=== PATIENT | female | born 1985 | race Caucasian/White ===

== ENCOUNTER 2018-12-30 16:38 | Emergency (ER) | payer BC, OTHER ==
[2018-12-30 16:56] VITALS: BP 134/75
--- NOTE | 2018-12-30 17:22 | UC ---
UC General HPI - HPI Summary HPI Summary: pt notes long hx varicose veins. the varicose vein in her R thigh has become very painful and now has surrounding redness for the past 3 days. no hx injury, fever, chills, cp or sob. - History of Current Complaint Chief Complaint: UCLowerExtremity Stated Complaint: RIGHT LEG PAIN Time Seen by Provider: 12/30/18 17:01 Hx Obtained From: Patient Hx Last Menstrual Period: "5 days ago" Onset/Duration: Gradual Onset Timing: Constant Pain Intensity: 7 Aggravating: touch - Allergy/Home Medications Allergies/Adverse Reactions: Allergies Allergy/AdvReac Type Severity Reaction Status Date / Time bupropion [From Wellbutrin] Allergy Rash Verified 12/30/18 16:52 Home Medications: Home Medications Bcp 1 tab QPM 12/30/18 [History Confirmed 12/30/18] PMH/Surg Hx/FS Hx/Imm Hx Previously Healthy: Yes - Surgical History Surgical History: Yes Surgery Procedure, Year, and Place: - Family History Known Family History: Positive: Non-Contributory - Social History Lives: With Family Alcohol Use: Rare Substance Use Type: None Smoking Status (MU): Light Every Day Tobacco Smoker Type: Cigarettes Amount Used/How Often: 10-15 cigs/day Review of Systems All Other Systems Reviewed And Are Negative: Yes Constitutional: Negative: Fever, Chills Skin: Positive: Rash - R inner thigh Respiratory: Negative: Shortness Of Breath, Cough Cardiovascular: Negative: Palpitations, Chest Pain Motor: Negative: Decreased ROM Musculoskeletal: Negative: Calf Tenderness, Edema Physical Exam Triage Information Reviewed: Yes Appearance: Well-Appearing Vital Signs: Initial Vital Signs Temp 98.8 F 12/30/18 16:52 Pulse 82 12/30/18 16:52 Resp 16 12/30/18 16:52 BP 134/75 12/30/18 16:52 Pulse Ox 99 12/30/18 16:52 Vital Signs Reviewed: Yes Eyes: Positive: Conjunctiva Clear Neck: Positive: Supple Respiratory: Positive: No respiratory distress Cardiovascular: Positive: RRR Abdomen Description: Positive: Nontender Musculoskeletal: Positive: ROM Intact Neurological: Positive: Alert Psychological: Positive: Normal Response To Family, Age Appropriate Behavior Skin Exam: Normal, Other - Pt is wearing shorts: bilateral vericose veins noted to BLE's. The R superficial sapenous vein is very tender and has adjacent redness to the distal end but involves the entire medial thigh at the proximal end. Course/Dx - Course Course Of Treatment: [facility] CALLED AND REPORT GIVEN TO SASKIA MAYA. I ADVISED OF SUPERFICIAL SAPHENOUS VEIN VARICOSITY WITH PHLEBITIS, SECONDARY CELLULITIS AND NEED TO R/O DVT BECAUSE OF RELATION TO DEEP SAPHENOUS VEIN. - Differential Dx - Multi-Symptom Differential Diagnoses: Other - varicose vein with a phlebitis, secondary cellulitis and will need to r/o DVT. - Diagnoses Provider Diagnosis: Phlebitis, Cellulitis, Varicose vein of leg Discharge - Sign-Out/Discharge Documenting (check all that apply): Patient Departure All imaging exams completed and their final reports reviewed: No Studies - Discharge Plan Condition: Stable Disposition: TRANS HIGHER LVL OF CARE FAC Referrals: Earnsetine Rae MD [Primary Care Provider] - Additional Instructions: LEAVE HERE AND GO DIRECTLY TO THE ER DISCUSSED. - Billing Disposition and Condition Condition: STABLE Disposition: Trans Higher Lvl of Care Fac
== END 2018-12-30 17:30 | disposition short-term general hospital (02) ==
LOC: UCCORT 16:38
DX: I80.9 Phlebitis and thrombophlebitis of unspecified site (principal); L03.115 Cellulitis of right lower limb; I83.811 Varicose veins of right lower extremity with pain; F17.210 Nicotine dependence, cigarettes, uncomplicated
CPT/HCPCS: 99212; G0463

== ENCOUNTER 2019-05-18 07:02 | Emergency (ER) | payer OTHER ==
[2019-05-18 07:27] VITALS: BP 145/74
--- NOTE | 2019-05-18 08:15 | UC ---
Throat Pain/Nasal Demar HPI - HPI Summary HPI Summary: sore throat x 1 week pain is sever 6 out of 10 , cannot eat anything, getting worse over the past 2 days pain is mostly on the right side of her throat, radiating to her right neck and right ear + fever, + chills, no cough , no runny nose - History of Current Complaint Chief Complaint: UCGeneralIllness Stated Complaint: SORE THROAT RIGHT EAR Time Seen by Provider: 05/18/19 07:16 Hx Obtained From: Patient Hx Last Menstrual Period: ~05/13/19 ?: No Onset/Duration: Gradual Onset, Lasting Days - 7, Still Present Severity: Severe Pain Intensity: 2 Pain Scale Used: 0-10 Numeric Cough: None Associated Signs & Symptoms: Positive: Drooling, Fever. Negative: Dysphagia, FB Sensation, Wheezing, Hoarseness, Sinus Discomfort, Nasal Discharge, Vomiting , Rash - Allergies/Home Medications Allergies/Adverse Reactions: Allergies Allergy/AdvReac Type Severity Reaction Status Date / Time bupropion [From Wellbutrin] Allergy Rash Verified 05/18/19 07:24 Home Medications: Home Medications NK [No Home Medications Reported] 05/18/19 [History Confirmed 05/18/19] PMH/Surg Hx/FS Hx/Imm Hx - Additional Past Medical History Additional PMH: Left Ear Tinnitis - Surgical History Surgical History: Yes Surgery Procedure, Year, and Place: , 2012, [place] - Family History Known Family History: Positive: Non-Contributory Negative: Diabetes - Social History Alcohol Use: Rare Substance Use Type: None Smoking Status (MU): Light Every Day Tobacco Smoker Type: Cigarettes Amount Used/How Often: <3/4 PPD Length of Time of Smoking/Using Tobacco: Since Age 18 Review of Systems All Other Systems Reviewed And Are Negative: Yes Constitutional: Positive: Fever, Chills, Fatigue Skin: Positive: Negative Eyes: Positive: Negative ENT: Positive: Sore Throat. Negative: Ear Ache, Nasal Discharge, Sinus Congestion, Sinus Pain/Tenderness Respiratory: Negative: Cough Cardiovascular: Positive: Negative Is Patient Immunocompromised?: No Physical Exam Triage Information Reviewed: Yes Appearance: Well-Appearing, No Pain Distress, Well-Nourished Vital Signs: Initial Vital Signs Temp 100.2 F 05/18/19 07:23 Pulse 94 05/18/19 07:23 Resp 18 05/18/19 07:23 BP 145/74 05/18/19 07:23 Pulse Ox 98 05/18/19 07:23 Vital Signs Reviewed: Yes Eye Exam: Normal Eyes: Positive: Conjunctiva Clear ENT: Positive: Normal ENT inspection, Pharyngeal erythema, TMs normal, Tonsillar swelling, Tonsillar exudate, Trismus, Muffled voice. Negative: Nasal congestion, Nasal drainage, TM bulging, TM dull, TM red, Hoarse voice, Dental tenderness, Sinus tenderness, Uvula midline - deviation to left Neck: Positive: Supple, Tenderness @ - right side, Enlarged Nodes @ - right side Respiratory: Positive: Chest non-tender, Lungs clear, Normal breath sounds Cardiovascular: Positive: RRR, No Murmur, Pulses Normal Abdominal Exam: Normal Abdomen Description: Positive: Nontender, Soft Bowel Sounds: Positive: Present Skin Exam: Normal Throat Pain/Nasal Course/Dx - Differential Dx/Diagnosis Provider Diagnosis: Peritonsillar abscess Discharge ED - Sign-Out/Discharge Documenting (check all that apply): Patient Departure All imaging exams completed and their final reports reviewed: No Studies - Discharge Plan Condition: Stable Disposition: HOME Patient Education Materials: Peritonsillar Abscess (ED) Referrals: Earnestine Rae MD [Primary Care Provider] - Additional Instructions: please go to [facility] ED for evaluation and treatment may need STAT Evaluation by ENT - Billing Disposition and Condition Condition: STABLE Disposition: Home
== END 2019-05-18 07:47 | disposition home or self-care (01) ==
LOC: UCCORT 07:02
DX: J36 Peritonsillar abscess (principal); H92.01 Otalgia, right ear; F17.210 Nicotine dependence, cigarettes, uncomplicated; Z88.8 Allergy status to other drugs, medicaments and biological substances
CPT/HCPCS: 99212; G0463